=== PATIENT | male | born 1965 | race Hispanic/Latino ===

== ENCOUNTER 2019-01-01 10:24 | Emergency (ER) | payer MEDICARE ==
[2019-01-01 11:13] LABS: Hematocrit 43.1 % (35.5-45.6); Hemoglobin 14.8 gm/dl (11.8-15.2); Mean Corpuscular HGB Conc 34 % (32-34); Mean Corpuscular Volume 94 fl (84-94); Platelet Count 253 K/mm3 (140-440); Red Blood Count 4.61 M/mm3 (3.65-5.03); Red Cell Distribution Width 13.3 % (13.2-15.2)
[2019-01-01 11:25] LABS: Alanine Aminotransferase 24 units/L (7-56); Albumin 4.8 g/dL (3.9-5); BUN/Creatinine Ratio 19; Blood Urea Nitrogen 15 mg/dL (9-20); Calcium 9.8 mg/dL (8.4-10.2); Hemolysis Index 4
[2019-01-01 11:26] LABS: Alanine Aminotransferase 24 units/L (7-56); Albumin 4.8 g/dL (3.9-5)
[2019-01-01 11:30] LABS: Bilirubin,Direct < 0.2 mg/dL (0-0.2)
[2019-01-01] MEDS ORDERED: ZOFRAN IV ONE (12:24)
[2019-01-01] MEDS ORDERED: MORPHINE IV ONE ×2 (12:24→13:51)
[2019-01-01] MEDS ORDERED: NACL 0.9% 1000 ML 1,000 ML IV ONE (12:29)
--- NOTE | 2019-01-01 12:31 | Emergency Department Report ---
HPI - General Chief Complaint: Abdominal Pain Time Seen by Provider: 01/01/19 12:12 - HPI HPI: Room 6 The patient is a 53-year-old male presenting with a chief complaint abdominal pain. Patient states this approximately 2 weeks she's constant normal pain greatest in the right upper quadrant radiating diffusely. Patient is to nausea vomiting and diarrhea. Patient states she's been unable to eat secondary to his symptoms and when he is able to eat for those "right through" him. Patient missed a fever 102F. Patient describes as a dull pain sharp in nature. Patient missed hematuria and dysuria for 2 weeks. Patient currently gets his pain score of "20/10." Location: [See above] Duration: [See above] Quality: [See above] Severity: [See above] Timing: [See above] Context: [See above] Modifying factors: [See above] Associated signs and symptoms: [see above] ED Past Medical Hx - Past Medical History Previous Medical History?: Yes Hx Hypertension: Yes Hx of Cancer: Yes (lymphoma) Additional medical history: factor V Leiden. Hepatitis B and C - Surgical History Past Surgical History?: Yes Additional Surgical History: right hand - Family History Family history: no significant - Social History Smoking Status: Current Every Day Smoker (1 pack per day) Substance Use Type: None (denies illicit drug use) - Medications Home Medications: Home Medications Medication Instructions Recorded Confirmed Last Taken Type ALPRAZolam [Xanax TAB] 1 mg PO TID PRN 01/01/19 01/01/19 12/31/18 History Escitalopram Oxalate [Lexapro] 20 mg PO QDAY 01/01/19 01/01/19 01/01/19 History HYDROcodone/APAP 5-325 [Herlong 1 - 2 each PO Q6HR PRN #14 tablet 01/01/19 Unknown Rx 5/325] Promethazine [Phenergan] 25 mg PO Q6HR PRN #20 tab 01/01/19 Unknown Rx Promethazine [Phenergan] 25 mg MT Q6HR PRN #5 supp.rect 01/01/19 Unknown Rx Quetiapine Fumarate [SEROquel] 400 mg PO QHS 01/01/19 01/01/19 12/31/18 History Rivaroxaban [Xarelto] 5 mg PO QDAY 01/01/19 01/01/19 01/01/19 History ED Review of Systems ROS: Stated complaint: UPPER ABD PAIN Other details as noted in HPI Eyes: denies: eye pain ENT: denies: throat pain Respiratory: no symptoms reported Cardiovascular: denies: chest pain Endocrine: no symptoms reported Gastrointestinal: abdominal pain, nausea, vomiting, diarrhea Genitourinary: dysuria, hematuria Musculoskeletal: back pain Neurological: denies: headache Physical Exam - Physical Exam Vital Signs: Vital Signs 01/01/19 10:25 Temperature 98.3 F Pulse Rate 79 Respiratory 18 Rate Blood Pressure 167/98 O2 Sat by Pulse 98 Oximetry Physical Exam: GENERAL: The patient is well-developed well-nourished male lying on stretcher appearing to be in moderate discomfort. [] HEENT: Normocephalic. Atraumatic. Extraocular motions are intact. Patient has moist mucous membranes. NECK: Supple. Trachea midline CHEST/LUNGS: Clear to auscultation. There is no respiratory distress noted. HEART/CARDIOVASCULAR: Regular. There is no tachycardia. There is no gallop rub or murmur. ABDOMEN: Abdomen is soft, with diffuse tenderness to palpation but greatest in the right upper quadrant. There is no guarding. Patient has normal bowel sounds. There is no abdominal distention. SKIN: There is no rash. There is no edema. There is no diaphoresis. NEURO: The patient is awake, alert, and oriented. The patient is cooperative. The patient has normal speech MUSCULOSKELETAL: There is CVA tenderness bilaterally. There is no evidence of acute injury. ED Course Vital Signs 01/01/19 10:25 Temperature 98.3 F Pulse Rate 79 Respiratory 18 Rate Blood Pressure 167/98 O2 Sat by Pulse 98 Oximetry ED Medical Decision Making - Lab Data Result diagrams: 01/01/19 10:45 01/01/19 10:45 - Radiology Data Radiology results: report reviewed (CT abdomen and pelvis, right upper quadrant ultrasound), image reviewed (CT abdomen and pelvis, right upper quadrant ultrasound) [facility] [address] [place] [address] Cat Scan Report Signed Patient: EDILBERTO OJEDA MR#: [id number] : 1965 Acct:[id number] Age/Sex: 53 / M ADM Date: 01/01/19 Loc: ED Attending Dr: Or dering Physician: ELENA MERINO MD Date of Service: 01/01/19 Procedure(s): CT abdomen pelvis w con Accession Number(s): [id number] cc: ELENA MERINO MD CT ABDOMEN AND PELVIS WITH CONTRAST HISTORY: diffuse abdominal pain greatest in RUQ. nvd COMPARISON: None. TECHNIQUE: Axial CT images were obtained through the abdomen and pelvis after 100 cc of Omnipaque 300 intravenously. Sagittal and coronal reformatted images. All CT scans at this location are performed using CT dose reduction for ALARA by means of automated exposure control. FINDINGS: CT ABDOMEN: Lung Bases: Mild subpleural atelectatic changes are noted in both lower lobes. Liver: No significant abnormality. Biliary: No significant abnormality. Spleen: No significant abnormality. Unenlarged. Pancreas: No significant abnormality. Adrenals: No significant abnormality. Kidneys: No significant abnormality. 1.5 cm right renal cyst is noted. Lymphatics: No lymphadenopathy. Vasculature: No significant abnormality. Bowel/Peritoneum: No significant abnormality. No free air. No free fluid. Normal appendix. CT PELVIS: : No significant abnormality. Osseous Structures: No significant abnormality. Additional Findings: None IMPRESSION: No significant abnormality. Signer Name: Gerardo Diop Jr, MD Signed: 01/01/2019 2:15 PM Workstation Name: [id number] Transcribed By: TTR Dictated By: GERARDO DIOP JR, MD Electronically Authenticated By: GERARDO DIOP JR, MD Signed Date/Time: 01/01/19 1415 DD/ 1411 TD/TT: [facility] [address] [place] [address] Ultrasound Report Signed Patient: EDILBERTO OJEDA MR#: [id number] : 1965 Acct:[id number] Age/Sex: 53 / M ADM Date: 01/01/19 Loc: ED Attending Dr: Ordering Physician: ELENA MERINO MD Date of Service: 01/01/19 Procedure(s): US abdomen limited Accession Number(s): [id number] cc: Yudy LITTLEJOHN ULTRASOUND ABDOMEN, LIMITED (RIGHT UPPER QUADRANT) INDICATION: Right upper quadrant abdominal pain. History of hepatitis B and C. COMPARISON: CT abdomen and pelvis with contrast performed earlier today. FINDINGS: Pancreas: No distinct abnormality. Liver: No significant abnormality. Gallbladder: The gallbladder wall is thickened and measures 3.9 mm. No pericholecystic fluid is identified. No distinct stones are identified. A probable small amount of sludge is seen in the gallbladder. Sonographic Grant's sign: Not performed. Bile ducts: No significant abnormality. Common Bile Duct measures 6 mm. Free fluid: None. Additional Findings: A simple appearing cyst along the mid pole of the right kidney measures up to 1.7 cm. No additional significant findings. IMPRESSION: Nonspecific mild gallbladder wall thickening with a probable small amount of sludge in the gallbladder without additional evidence of acute cholecystitis. Please correlate with the clinical findings. Signer Name: Sky Henderson MD Signed: 01/01/2019 4:25 PM Workstation Name: [id number] Transcribed By: SWETHA Dictated By: Sky Henderson MD Electronically Authenticated By: Sky Henderson MD Signed Date/Time: 01/01/191624 DD/ 20 TD/TT: - Differential Diagnosis cholecystitis, hepatitis, intra-abdominal abscess, diverticulitis Critical care attestation.: If time is entered above; I have spent that time in minutes in the direct care of this critically ill patient, excluding procedure time. ED Disposition Clinical Impression: Acute abdominal pain, Lymphoma, Leukocytosis Disposition: -01 TO HOME OR SELFCARE Is pt being admited?: No Does the pt Need Aspirin: No Condition: Stable Instructions: Acute Abdominal Pain (ED) Additional Instructions: Return to the emergency department should you develop worsening symptoms, inability to tolerate food or liquids, high fever or any other concerns Prescriptions: HYDROcodone/APAP 5-325 [Herlong 5/325] 1 - 2 each PO Q6HR PRN #14 tablet PRN Reason: Pain Promethazine [Phenergan] 25 mg PO Q6HR PRN #20 tab PRN Reason: Nausea Promethazine [Phenergan] 25 mg MT Q6HR PRN #5 supp.rect PRN Reason: Nausea Referrals: NINA JAQUEZ DO [Primary Care Provider] - 3-5 Days Time of Disposition: 17:03
[2019-01-01 12:54] LABS: Basophils % (Manual) 0 % (0.0-1.8); Eosinophils % (Manual) 0 % (0.0-4.3); Total Cells Counted 100
[2019-01-01 12:55] LABS: Platelet Estimate Consistent w Auto; RBC Morphology Normal
[2019-01-01 13:16] LABS: Bilirubin,Urine NEG (Negative); Blood,Urine LG (Negative); Color,Urine Yellow (Yellow); Mucus,Urine FEW /HPF; Urobilinogen,Urine < 2.0 mg/dL (<2.0)
[2019-01-01 13:24] VITALS: BP 133/80
--- NOTE | 2019-01-01 14:20 | Cat Scan Report ---
CT ABDOMEN AND PELVIS WITH CONTRAST HISTORY: diffuse abdominal pain greatest in RUQ. nvd COMPARISON: None. TECHNIQUE: Axial CT images were obtained through the abdomen and pelvis after 100 cc of Omnipaque 300 intravenously. Sagittal and coronal reformatted images. All CT scans at this location are performed using CT dose reduction for ALARA by means of automated exposure control. FINDINGS: CT ABDOMEN: Lung Bases: Mild subpleural atelectatic changes are noted in both lower lobes. Liver: No significant abnormality. Biliary: No significant abnormality. Spleen: No significant abnormality. Unenlarged. Pancreas: No significant abnormality. Adrenals: No significant abnormality. Kidneys: No significant abnormality. 1.5 cm right renal cyst is noted. Lymphatics: No lymphadenopathy. Vasculature: No significant abnormality. Bowel/Peritoneum: No significant abnormality. No free air. No free fluid. Normal appendix. CT PELVIS: : No significant abnormality. Osseous Structures: No significant abnormality. Additional Findings: None IMPRESSION: No significant abnormality. Signer Name: Gerardo Diop Jr, MD Signed: 01/01/2019 2:15 PM Workstation Name: [id number]
[2019-01-01] MEDS ORDERED: NORCO 5/325 PO ONE (16:28)
--- NOTE | 2019-01-01 16:29 | Ultrasound Report ---
ULTRASOUND ABDOMEN, LIMITED (RIGHT UPPER QUADRANT) INDICATION: Right upper quadrant abdominal pain. History of hepatitis B and C. COMPARISON: CT abdomen and pelvis with contrast performed earlier today. FINDINGS: Pancreas: No distinct abnormality. Liver: No significant abnormality. Gallbladder: The gallbladder wall is thickened and measures 3.9 mm. No pericholecystic fluid is ident ified. No distinct stones are identified. A probable small amount of sludge is seen in the gallbladde r. Sonographic Grant's sign: Not performed. Bile ducts: No significant abnormality. Common Bile Duct measures 6 mm. Free fluid: None. Additional Findings: A simple appearing cyst along the mid pole of the right kidney measures up to 1. 7 cm. No additional significant findings. IMPRESSION: Nonspecific mild gallbladder wall thickening with a probable small amount of sludge in the gallbladde r without additional evidence of acute cholecystitis. Please correlate with the clinical findings. Signer Name: Sky Henderson MD Signed: 01/01/2019 4:25 PM Workstation Name: [id number]
== END 2019-01-01 17:54 | disposition home or self-care (01) ==
LOC: ED 10:24
DX: D72.829 Elevated white blood cell count, unspecified (principal); C85.90 Non-Hodgkin lymphoma, unspecified, unspecified site; F17.210 Nicotine dependence, cigarettes, uncomplicated; I10 Essential (primary) hypertension; Z79.899 Other long term (current) drug therapy; Z88.6 Allergy status to analgesic agent; Z88.1 Allergy status to other antibiotic agents
CPT/HCPCS: 36415; 74177; 76705; 80053; 80076; 81001; 82140; 83690; 85007; 85025; 96361; 96374; 96375; 96376; 99284; J2270; J2405; J7030; Q9967